=== PATIENT | male | born 1940 | race Caucasian/White ===

== ENCOUNTER → 2016-09-05 | Outpatient (CLI) | payer MEDICARE, OTHER ==
[~2016-09-05] MED LIST: ALBUTEROL2.5 MG/0.5 INH; ASPIRIN81 MG PO; FEROSUL325 MG PO; NAPROSYN500 MG PO; NORCO 325 MG-51 TAB PO; PREDNISONE10 MG PO; SIMVASTATIN20 MG PO; SIMVASTATIN80 MG PO; VIBRAMYCIN100 MG PO; VITAMIN D2000 IU PO; VITAMIN D400 UNI1 PO
[2016-09-05 09:39] LABS: BASO # 0.1 10*3/uL (0.0-0.1); EOS # 0.2 10*3/uL (0.0-0.4); HEMATOCRIT 43.2 % (42.0-52.0); HEMOGLOBIN 13.6 g/dl (14.0-18.0); IG # 0.1 10*3/uL (0.0-0.1); LYMPH # 0.7 10*3/uL (1.3-4.4); LYMPH % 12.3 % (27.0-41.0); MEAN CELL VOLUME 84.2 fl (80.0-94.0); MEAN CORPUSCULAR HGB 26.5 pg (27.0-31.0); MEAN CORPUSCULAR HGB CONC 31.5 g/dl (33.0-37.0); MEAN PLATELET VOLUME 10.1 fl (9.6-12.3); MONO # 0.8 10*3/uL (0.1-1.0); MONO % 14.2 % (3.0-9.0); NEUT # 4.1 10*3/uL (2.3-7.9); NEUT % 68.5 % (47.0-73.0); PLATELET COUNT AUTOMATED 186 10*3/uL (130-400); RED BLOOD COUNT 5.13 10*6/uL (4.50-5.90); RED CELL DISTRI WIDTH 15.4 % (0-14.5); WHITE BLOOD COUNT 5.9 10*3/uL (4.8-10.8)
[2016-09-05 10:08] LABS: ALBUMIN 3.8 gm/dl (3.1-4.5); ALKALINE PHOSPHATASE 83 U/L (45-117); BILIRUBIN, TOTAL 0.4 mg/dl (0.2-1.0); BUN 13 mg/dl (7-24); CARBON DIOXIDE 31 mmol/L (21-32); CHLORIDE 102 mmol/L (98-107); CHOLESTEROL 119 mg/dL (<200); EST GLOM FILT AFRICAN AMERICAN > 60 ml/min; GLUCOSE 104 mg/dL (65-99); HDL CHOLESTEROL 42 mg/dl (40-60); LDL CHOLESTEROL 66 mg/dL (9-159); POTASSIUM 4.1 mmol/L (3.5-5.1); SGOT/AST 18 IU/L (3-35); SGPT/ALT 26 U/L (12-78); SODIUM 139 mmol/L (136-145); TOTAL PROTEIN 7.5 gm/dL (6.4-8.2); TRIGLYCERIDES 56 mg/dl (<150); VLDL CHOLESTEROL 11 mg/dL (6-40)
== END | disposition home or self-care (01) ==
LOC: LAB 09:17
PROVIDERS: Nurse Practitioner Family
DX: Z12.5 Encounter for screening for malignant neoplasm of prostate (principal); Z79.899 Other long term (current) drug therapy

== ENCOUNTER → 2017-02-20 | Day surgery (SDC) | payer MEDICARE, OTHER ==
[~2017-02-20] VITALS: Ht 177.8 cm; Wt 83.9 kg
--- NOTE | ~2017-02-20 | O ---
[place], [place] OPERATIVE NOTE NAME: [address] UNIT #: [id number] ROOM: DOCTOR: JAYA ORTEZ MD BIRTHDATE: [birth year] DOS: 02/20/2017 INDICATIONS: The patient is a 76-year-old male who presented with history of colonic polyp 10 years ago. ALLERGIES: No known medication. FAMILY HISTORY: Noncontributory. PAST SURGICAL HISTORY: Right meniscus arthroscopy, repair. PAST MEDICAL HISTORY: Hypercholesterolemia. SOCIAL HISTORY: Nonsmoker, nonalcohol consumer. PROCEDURE: Today's procedure part of investigation is colonoscopy plus polypectomies. PREMEDICATION: Versed and Diprivan. SCOPE: Olympus folding colonoscope 10L video. REPORT: After putting the patient in the left lateral position and after application of lubricant to the scope, the scope was introduced. Thereafter, under direct visualization, advanced through the length of colon without difficulty. Severe diverticulosis of sigmoid colon and left colon was appreciated. Base of the cecum explored, appendiceal orifice identified, and ileocecal valve was defined and photographed. A sessile polypoid lesion from hepatic flexure with piecemeal polypectomy removed. Air was suctioned out. The patient was extubated, tolerated the procedure well. IMPRESSION: Severe diverticulosis, sigmoid and descending colon. Sessile colonic polyp, hepatic flexure, status post piecemeal polypectomy. PLAN AND DISCUSSION: High fiber fruit diet. ACTIVITY: Ad avi. FOLLOWUP: As outpatient. Thank you very much indeed. [place], [place] OPERATIVE NOTE NAME: [address] UNIT #: [id number] ROOM: DOCTOR: JAYA ORTEZ MD BIRTHDATE: [birth year] JAYA ORTEZ MD CM:OPRECORD:OPERATIVE NOTE [id number] 30 JAYA ORTEZ MD 02/20/17 103 interface
[2017-02-20 07:35] VITALS: BP 148/82
[2017-02-20 08:25] VITALS: BP 129/74
[2017-02-20 08:40] VITALS: BP 117/59
[2017-02-20 08:54] VITALS: BP 128/72
== END | disposition home or self-care (01) ==
LOC: SDC 02-15 11:00
DX: Z09 Encounter for follow-up examination after completed treatment for conditions other than malignant neoplasm (principal); K63.5 Polyp of colon; Z86.010 Personal history of colon polyps; Z98.890 Other specified postprocedural states; E78.00 Pure hypercholesterolemia, unspecified; K57.30 Diverticulosis of large intestine without perforation or abscess without bleeding; Z80.9 Family history of malignant neoplasm, unspecified

== ENCOUNTER → 2017-04-08 | Outpatient (CLI) | payer MEDICARE, OTHER | END | disposition home or self-care (01) | LOC: ORTHO 04-05 17:30 | DX: M19.042 Primary osteoarthritis, left hand (principal); M79.89 Other specified soft tissue disorders ==

== ENCOUNTER 2019-05-20 20:46 | Emergency (ER) | payer MEDICARE, OTHER ==
[~2019-05-20] VITALS: Ht 175.2 cm; Wt 73.5 kg
[2019-05-20 22:42] LABS: BASO # 0.1 10*3/uL (0.0-0.1); BASO % 0.6 % (0.0-1.0); EOS # 0.1 10*3/uL (0.0-0.4); EOS % 0.8 % (1.0-4.0); HEMATOCRIT 35.8 % (42.0-52.0); HEMOGLOBIN 11.5 g/dl (14.0-18.0); LYMPH # 0.4 10*3/uL (1.3-4.4); LYMPH % 5.4 % (27.0-41.0); MEAN CELL VOLUME 81.7 fl (80.0-94.0); MEAN CORPUSCULAR HGB 26.3 pg (27.0-31.0); MEAN CORPUSCULAR HGB CONC 32.1 g/dl (33.0-37.0); MEAN PLATELET VOLUME 9.4 fl (9.6-12.3); MONO # 0.9 10*3/uL (0.1-1.0); NEUT # 6.3 10*3/uL (2.3-7.9); NEUT % 80.2 % (47.0-73.0); PLATELET COUNT AUTOMATED 240 10*3/uL (130-400); RED BLOOD COUNT 4.38 10*6/uL (4.50-5.90); RED CELL DISTRI WIDTH 14.6 % (0-14.5); WHITE BLOOD COUNT 7.8 10*3/uL (4.8-10.8)
[2019-05-20 22:57] LABS: ALBUMIN 3.1 gm/dl (3.1-4.5); ALKALINE PHOSPHATASE 90 U/L (45-117); BUN 13 mg/dl (7-24); CHLORIDE 100 mmol/L (98-107); CREATININE 0.58 mg/dL (0.70-1.30); SGOT/AST 27 IU/L (3-35); SGPT/ALT 22 U/L (12-78); SODIUM 132 mmol/L (136-145); TOTAL PROTEIN 6.8 gm/dL (6.4-8.2)
[2019-05-20 22:58] LABS: TROPONIN I < 0.015 ng/ml (<0.045)
== END 2019-05-21 00:50 | disposition home or self-care (01) ==
LOC: ED 20:46
PROVIDERS: Emergency Medicine
DX: R07.89 Other chest pain (principal); E78.00 Pure hypercholesterolemia, unspecified; R07.81 Pleurodynia; R05 Cough; Z79.82 Long term (current) use of aspirin; Z79.899 Other long term (current) drug therapy; Z87.891 Personal history of nicotine dependence